=== PATIENT | female | born 1945 | race Asian ===

== ENCOUNTER 2022-02-08 10:14 | Outpatient (CLI) | payer OTHER | END 2022-02-08 18:57 | disposition home or self-care (01) | LOC: RAD 10:14 | PROVIDERS: ATTEND Nurse Practitioner Family | DX: E13.40 Other specified diabetes mellitus with diabetic neuropathy, unspecified (principal); E55.9 Vitamin D deficiency, unspecified; M85.89 Other specified disorders of bone density and structure, multiple sites ==